=== PATIENT | female | born 1960 | race Caucasian/White ===

== ENCOUNTER 2017-10-07 07:27 | Day surgery (SDC) | payer BC ==
[2017-10-04 14:48] VITALS: BMI 25.7
[2017-10-07] MEDS ORDERED: THROMBIN (BOVINE) 5,000 UNIT VIAL TP ONE ×3 (07:44→10:30)
[2017-10-07] MEDS ORDERED: LIDOCAINE 1%/EPI 1:100000 (20 ML MULTI DOSE VIAL) ONE (07:44)
[2017-10-07] MEDS ORDERED: MIDAZOLAM HCL 2 MG/2 ML SINGLE DOSE VIAL ONE (07:57)
[2017-10-07] MEDS ORDERED: DEXAMETHASONE SOD PHOSPHATE/PF 10 MG/ML SDV ONE (07:57)
[2017-10-07] MEDS ORDERED: BUPIVACAINE HCL/PF (5 MG/ML) 30 ML VIAL IJ ONE (07:58)
[2017-10-07] MEDS ORDERED: CEFAZOLIN 1 GM in DEXTROSE 5%-WATER - 100 ML IVPB ONE (08:01)
--- NOTE | 2017-10-07 08:03 | HP ---
History & Physical Update - History History: No Change - Physical Physical: No Change - Assessment Assessment: No Change - Plan Plan: No Change (Initial H&P (10/06/17) is in her paper chart. No new complaints or medications. Here today for elective ACDF C4-C5.)
[2017-10-07] MEDS ORDERED: PROPOFOL 20 ML ONE ×7 (08:13→10:09)
[2017-10-07] MEDS ORDERED: SUCCINYLCHOLINE CHLORIDE 200 MG/10 ML VIAL ONE (08:14)
[2017-10-07] MEDS ORDERED: GELATIN, ABSORBABLE 100 EACH SPONGE TP ONE ×2 (08:18→10:30)
[2017-10-07] MEDS ORDERED: GUM MASTIC/STORAX/MSAL/ALCOHOL 1 DRP DROPSBTL MC ONE (08:33)
[2017-10-07] MEDS ORDERED: DEXAMETHASONE SOD PHOSPHATE 4 MG/1 ML VIAL ONE ×2 (09:20→09:36)
[2017-10-07] MEDS ORDERED: LIDOCAINE HCL/PF 2% SDV 5ML VIAL ONE (09:20)
[2017-10-07] MEDS ORDERED: ONDANSETRON 4 MG/2 ML VIAL ONE (09:20)
[2017-10-07] MEDS ORDERED: HYDROmorphone HCL/PF 1 MG/ML AMP ONE (09:27)
[2017-10-07] MEDS ORDERED: ceFAZolin SODIUM 1 GM VIAL ONE (09:36)
[2017-10-07] MEDS ORDERED: DESFLURANE GAS 240 ML BOTTLE IH ONE (09:55)
--- NOTE | 2017-10-07 11:19 | OP ---
Operative Note - Note: Operative Date: 10/07/17 Pre-Operative Diagnosis: Cervical stenosis with radiculopathy Operation: C4/5 ACDF Post-Operative Diagnosis: Same as Pre-op Surgeon: Eamon Sandy Flexographic Press Plate Setter: Fuad De La Fuente Anesthesiologist/EMERGING TECHNOLOGIES DIRECTOR: Charley Mcgee Anesthesia: General Specimens Removed: C4/5 disc Estimated Blood Loss (mls): 15 Fluid Volume Replaced (mls): 800 Operative Report Dictated: Yes
--- NOTE | 2017-10-07 11:20 | SURG ---
Surgery Shop Tailor Note Shop Tailor: Fuad De La Fuente PA-C Date of Service: 10/07/17 Diagnosis: C4/5 stenosis with radiculopathy Procedure: Anterior cervical discectomy, fuison C4/5, allograft implant, neuromonitoring I was present for the entirety of the operative procedure. For further detail, please refer to operative report. Visit type - Case Type Case Type: Scheduled - New patient This patient is new to me today: Yes Date on this admission: 10/07/17
[2017-10-07] MEDS ORDERED: ONDANSETRON 4 MG/2 ML VIAL IVPUSH PRN (11:21)
[2017-10-07] MEDS ORDERED: oxyCODONE HCL 5 MG TABLET PO PRN (11:21)
[2017-10-07] MEDS ORDERED: LACTATED RINGERS SOLUTION 1,000 ML IV SCH ×2 (11:30)
[2017-10-07] MEDS ORDERED: KETOROLAC TROMETHAMINE 30 MG/1 ML VIAL ONE (12:16)
--- NOTE | 2017-10-07 12:42 | OP ---
DATE OF OPERATION: 10/07/2017 PREOPERATIVE DIAGNOSIS: Cervical stenosis, C4-5. PREOPERATIVE DIAGNOSIS: Cervical stenosis, C4-5. PROCEDURE PERFORMED: 1. Anterior cervical diskectomy and fusion, C4-5. 2. Placement of prosthetic cage. 3. Placement of instrumentation. SURGEON: Eamon Sandy MD [facility]ALITY [employer]OL LAB TECHNICIAN: ALIA Ray ESTIMATED BLOOD LOSS: 50 mL. INTRAVENOUS FLUIDS: Per Anesthesia. ANESTHESIA: General/superficial cervical block. COMPLICATIONS: There were none. DISPOSITION: Patient brought to the PACU in stable condition. INDICATION FOR SURGERY: Patient is a 56-year-old female who has been suffering from pain from neck down her arms. X-rays and workup completed which noted she had cervical disk stenosis at C4-5. She had gone through an exhaustive course of treatment for this which included medications, physical therapy, as well as injections. Unfortunately, her pain continued to persist despite all this. At this point, risks, benefits, and alternatives were discussed, and the patient consented to surgery. DESCRIPTION OF PROCEDURE: Patient was brought to the operating room by the Anesthesia staff after appropriate patient identification was performed. General anesthesia was administered, and superficial surgical block was also given. The patient was placed supine on the OR bed with arms tucked in at the side. All areas of bony prominences were well padded at this time. A shoulder roll was placed underneath her shoulder to extend her neck to the point that she could tolerate in the preoperative holding area. A needle was taped onto her neck to angel off the C4-5 disk. X-rays taken to confirm this was correct. Needle was removed, and 10 mL of lidocaine with epinephrine was injected into her neck at this time. Her neck was prepped and draped in sterile manner. At this point, timeout was completed. A 2-inch incision was made in the left side of her neck. Dissection was carried down to the platysma. The platysma was cut in line with the skin incision. Next, the interval between the sternocleidomastoid and strap muscles was developed. Next, the interval between carotid sheath and tracheoesophagus was developed. A needle was placed into the C4-5 disk. X-rays were taken to confirm this was correct. Needle was removed, and longus coli muscles were elevated off. Retractor blades were placed in. A knife was used to incise the disks. Prabhu pins were placed, and distractor was applied. The microscope was brought. Using a series of pituitaries, Kerrisons, and curettes, a diskectomy was completed. The endplates were decorticated at this time. Cage filled with bone graft was placed in. Dennis pins were removed. A screw was placed in the body of C4. Screws were placed in the body of C5. AP and lateral x-rays confirmed the instrumentation to be in good position. Final tightening was performed. The platysma was closed with 2-0 Vicryl sutures. Kin was closed with 3-0 Monocryl suture. Dermabond was applied. Steri-Strips were applied. Sterile dressing was applied. Patient was placed supine on the OR bed, extubated in the OR and brought to the PACU in stable condition. Austin RIZVI/[id number]
[2017-10-07] MEDS ORDERED: oxyCODONE HCL 5 MG TABLET PO ONE (13:06)
[2017-10-07] MEDS ORDERED: CEFAZOLIN 1 GM/D5W 1 GM/50 ML BAG ONE (15:22)
[2017-10-07] MEDS ORDERED: CEFAZOLIN 1 GM/D5W 1 GRAM/50 ML BAG IVPB SCH ×2 (16:00→18:00)
[2017-10-07] MEDS ORDERED: INSULIN SLIDING SCALE (NOVOLOG) 1 VIAL SQ SCH (16:30)
[2017-10-07] MEDS ORDERED: INSULIN (NOVOLOG) ASPART 100 UNITS/ML 10ML VIAL SQ SCH (16:30)
[2017-10-07 16:48] VITALS: BP 147/92; PULSE 104; TEMP 97.8
[2017-10-07] MEDS ORDERED: INSULIN (LEVEMIR) 100 UNITS/ML UNITS SQ SCH (22:00)
[2017-10-08] MEDS ORDERED: LISINOPRIL 5 MG TABLET (FP) PO SCH (10:00)
--- NOTE | 2017-10-11 15:17 | PATH ---
Surgical Pathology Report Patient Name: VIRY WHITTAKER [facility]. Rec. #: [id number] /Age/Gender: 1960 (Age: 56) / F Account: [id number] Location: [facility] Taken: 10/07/2017 Received: 10/07/2017 Reported: 10/11/2017 Physicians: Michelle Roy Specimen(s) Received C4-5 DISC Clinical History Cervical stenosis Final Diagnosis C4-5 DISC, EXCISION: CARTILAGE WITH DEGENERATIVE CHANGES. Electronically Signed Anisa Mueller M.D. Gross Description Received in formalin labeled "C4-5 disc," is a 2.3 x 2.0 x 0.3 cm aggregate of eng fragments of fibrocartilaginous tissue. A financial service representative portion is submitted in one cassette. 10/08/201710/08/2017
== END 2017-10-07 16:35 | disposition home or self-care (01) ==
LOC: FASUSAT 07:27
PROVIDERS: ATTEND Orthopaedic Surgery Orthopaedic Surgery of the Spine
PROC: 0RG10A0 Fusion of Cervical Vertebral Joint with Interbody Fusion Device, Anterior Approach, Anterior Column, Open Approach (ICD-10-PCS; 2017-10-07)
PROC: 0RG10K0 Fusion of Cervical Vertebral Joint with Nonautologous Tissue Substitute, Anterior Approach, Anterior Column, Open Approach (ICD-10-PCS; 2017-10-07)
PROC: 0RB30ZZ Excision of Cervical Vertebral Disc, Open Approach (ICD-10-PCS; principal; 2017-10-07 10:03)
DX: M48.02 Spinal stenosis, cervical region (principal)
CPT/HCPCS: 22551; 22845; 22853; C1889; 72050-TC-FY; 76001-TC-FY; 82962; 88304-TC; 94760